=== PATIENT | female | born 1965 | race Caucasian/White ===

== ENCOUNTER → 2018-09-18 10:47 | Outpatient (CLI) | payer OTHER, SELFPAY ==
--- NOTE | 2018-09-17 | EMB_PTH ---
PATIENT: JOE NATH LOC: [facility] U#:[id number] AGE/SX: 60/F ROOM: RE09/18/[address]: Dr. Danilo Boss MD : 1965 BED: DIS: SPEC #: [id number] RECD: 09/18/18 10:34 STATUS: TAI RESotero #: [id number] LENY: 09/17/18 00:[address]: Danilo Boss DEPT: SURGICAL PATHOLOGY RECD BY: Sebastián Lares Tissues: Endometrium, NOS Procedures: Surgery Specimen Level IV HEADER OPERATION: Endometrial biopsy PRE-OP DIAGNOSIS: N93.9 TISSUE SUBMITTED: Endometrial biopsy MICROSCOPIC DIAGNOSIS Endometrium, biopsy: Secretory endometrium. AM:sonia 09/19/18 MICROSCOPIC DESCRIPTION Slides are reviewed. GROSS DESCRIPTION Received in fixative is one container labeled with the patient's name and designated EM biopsy. The specimen consists of multiple fragments of bynum hemorrhagic soft tissue that in aggregate measure 3 x 2.5 x 0.2 cm. The entire specimen is submitted in one cassette. / SJ:sonia 09/18/18 TC:5 CPT: 84538
[2018-09-23 12:11] LABS: HPV Reflexed? NOT INDICATED
== END ==
PROVIDERS: Referring Provider Obstetrics & Gynecology; Visit Provider Obstetrics & Gynecology
DX: N85.8 Other specified noninflammatory disorders of uterus (principal); Z12.4 Encounter for screening for malignant neoplasm of cervix; N93.9 Abnormal uterine and vaginal bleeding, unspecified
CPT/HCPCS: 87624; 88175; 88305; G0145

== ENCOUNTER → 2020-09-28 | Outpatient (CLI) | payer OTHER, SELFPAY ==
--- NOTE | 2020-09-29 | EMB_PTH ---
PATIENT: JOE NATH [facility]#:[id number] AGE/SX: 55/F ROOM: RE09/28/[address]: Dr. Danilo Boss MD : 1965 BED: DIS: 09/28/2020 SPEC #: [id number] RECD: 09/29/20 10:34 STATUS: TAI MAYERS #: [id number] LENY: 09/29/20 00:[address]: Danilo Boss DEPT: SURGICAL PATHOLOGY RECD BY: Sebastián Lares Tissues: A - Endometrium, NOS B - Uterine cervix, NOS Procedures: Surgery Specimen Level IV HEADER OPERATION: Endometrial biopsy PRE-OP DIAGNOSIS: PMB TISSUE SUBMITTED: A - Endometrial biopsy, B ? Cervical polyp MICROSCOPIC DIAGNOSIS A. Endometrial biopsy: Proliferative endometrium. A fragment of benign endocervical mucosa, blood and mucous. B. Cervical polyp, biopsy: Benign ectocervical polyp. SJ:sonia 09/30/2020 MICROSCOPIC DESCRIPTION Slides are reviewed. GROSS DESCRIPTION A - Received in fixative is one container labeled with the patient's name and designated EMB. The specimen consists of multiple irregular fragments of bynum soft tissue mixed with bynum mucoid tissue that in aggregate measure 2 x 1 x 0.3 cm. The entire specimen is submitted in one cassette. B - Received in fixative is one container labeled with the patient's name and designated cervical polyp. The specimen consists of a piece of pink congested polyp measuring 1 x 0.7 x 0.5 cm. The specimen is bisected and submitted entirely in one cassette. / SJ:rg 09/29/20 TC:4 CPT: 30322 x2
[2020-10-01 16:45] LABS: HPV Reflexed? NOT INDICATED
== END | disposition home or self-care (01) ==
PROVIDERS: Visit Provider Obstetrics & Gynecology
DX: N95.0 Postmenopausal bleeding (principal); Z12.4 Encounter for screening for malignant neoplasm of cervix
CPT/HCPCS: 88175; 88305; G0145

== ENCOUNTER → 2020-11-02 08:03 | Outpatient (CLI) | payer OTHER, SELFPAY ==
--- NOTE | 2020-11-02 08:06 | CT_ITS ---
STUDY: CT LEFTLOWER EXTREMITY WITHOUT CONTRAST REASON FOR EXAM: Female, 55 years old. OSTEOARTHRITIS RADIATION DOSAGE (If Supplied By Facility): CTDIvol = ( 18.87 ) mGy, DLP = ( 972.52 ) mGycm TECHNIQUE: Thin section transaxial imaging of the ankle was obtained, with sagittal and coronal reconstructed images. Individualized dose optimization techniques were used for this CT. COMPARISON: None. Hip findings: Normal hip joint without articular joint space narrowing. Normal acetabulum. Normal labrum. Normal femoral head. Normal femoral neck and intratrochanteric region. There is no demonstrated fracture. Normal superior and inferior pubic rami. Normal pubic symphysis. Normal ischial tuberosity. Normal visualized iliac wing, sacroiliac joint, and sacral ala. Normal visualized soft tissue structures of the pelvis. Knee findings: Moderate to significant narrowing is seen in the medial compartment of the knee joint. Mild peripheral cortical spurring is present in the medial compartment. A moderate size joint effusion is present. Normal lateral femoral condyle and lateral tibial plateau. There is preservation of the articular joint space of the lateral knee compartment. Mild narrowing of the patellofemoral compartment noted. No visualized fractures. Normal proximal tibiofibular articulation. The quadriceps tendon is grossly normal. The patellar tendon is grossly normal. Normal Hoffa''s fat pad. The soft tissues are unremarkable. Ankle findings: Normal visualized distal tibia and fibula. Normal tibiotalar articulation and talar dome. Normal talus, calcaneus, navicular and cuboid tarsal bones. Normal subtalar, talonavicular and calcaneocuboid articulations. Normal navicular-cuneiform, cuneiform tarsal bones and intercuneiform articulations. Normal tarsometatarsal articulations and visualized metatarsi. The soft tissue structures are grossly normal. CT/Extremity Lower without Contra IMPRESSION: 1. Moderate to significant narrowing is seen in the medial compartment of the knee joint. Mild peripheral cortical spurring is present in the medial compartment. A moderate size joint effusion is present. Electronically Signed: Raffy Colin MD at 23:55 EDT , Service support ,
--- NOTE | 2020-11-02 11:01 | EKG12_ITS ---
Test Reason : PRE-OP Blood Pressure : / mmHG Vent. Rate : 070 BPM Atrial Rate : 070 BPM P-R Int : 144 ms QRS Dur : 078 ms QT Int : 416 ms P-R-T Axes : 018 -01 016 degrees QTc Int : 449 ms Normal sinus rhythm Normal ECG Confirmed by PRIMITIVO SALES, CHRIS ([id number]), graphic editor SKYLA RHODES ([id number]) on 11/03/2020 1:03:34 PM Referred By: Ganga Small Confirmed By:CHRIS LANGFORD MD
== END ==
PROVIDERS: PCP Family Medicine; Referring Provider Orthopaedic Surgery; Visit Provider Orthopaedic Surgery
DX: Z01.810 Encounter for preprocedural cardiovascular examination (principal); M17.12 Unilateral primary osteoarthritis, left knee; Z01.818 Encounter for other preprocedural examination
CPT/HCPCS: 73700; 93005

== ENCOUNTER 2020-11-08 06:01 | Day surgery (SDC) | payer OTHER, SELFPAY ==
[2020-10-27 17:24] LABS: Hematocrit 41.4 % (37-47); Hemoglobin 12.9 g/dL (12.0-15.0); Mean Corp Hgb Conc 31.2 g/dL (32-36); Mean Corpuscular Hgb 28.6 pg (27.0-32.0); Mean Corpuscular Volume 91.8 fL (81-99); Mean Platelet Vol. 10.4 fl (6.2-12.0); Platelet Count 311 K/mm3 (150-450); RBC Distribution Width CV 14.3 % (11.6-14.6); RBC Distribution Width SD 48.3 fl (35.1-43.9); Red Blood Count 4.51 M/mm3 (4.2-5.4); White Blood Count 9.6 K/mm3 (4.4-11.0)
[2020-10-27 17:32] LABS: Partial Thromboplast Time 26.4 Seconds (24.1-36.2); Prothrombin Time (Protime)PT. 12.5 SECONDS (11.7-14.9)
[2020-10-27 18:46] LABS: ALB/GLOB Ratio 1.1 RATIO (0.9-2.4); AST(SGOT) 11 U/L (15-37); Alanine Aminotransfer ALT/SGPT 26 U/L (13-56); Albumin, Serum 3.6 g/dL (3.2-5.0); Alkaline Phosphatase 97 U/L (45-117); Anion Gap 5 (5-15); BUN 27 mg/dL (7-18); BUN/Creat Ratio 26.2 RATIO (10-20); Calcium,Total 8.4 mg/dL (8.5-10.1); Chloride 106 mmol/L (98-107); Creatinine, Serum 1.03 mg/dL (0.55-1.02); EST Glomerular Filtration Rate 59 mL/min (>60); Est Glom Filt Rate - Afr Amer 71 mL/min (>60); Follicle Stimulating Hormone 55.9 mIU/mL; Globulin 3.4 g/dL (2.2-4.2); Glucose 107 mg/dL (74-106); Potassium 3.9 mmol/L (3.5-5.1); Sodium Level 140 mmol/L (136-145)
[2020-11-02 14:09] LABS: Hemoglobin A1c 6.4 % (3.8-5.6)
--- NOTE | 2020-11-07 13:10 | HP.PCM_ITS ---
History and Physical Date of Admission: 11/08/20 Surgical History and Physical Ivania Mcbride, a 55 year old female 2 0 0 0 2, presents for D and C and hysteroscopy on November 08, 2020 at 7:30. -- [employer] Bleeding, EM Polyp -- PMB which began 9 months. Ivania claims it started suddenly and has been present November/2019, , . It occurs intermittantly. It is located in the vagina.; It is located in the lower abdomen. Ivania characterizes it to be non-radiating. Ivania characterizes the quality discharge from pink to red to brown. Severity is moderate and very concerned; Additional comments are: EMBx benign; u/s shows 1 cm EM polyp. MEDICATIONS HISTORY: Patient is also takin. fluoxetine 20 mg capsule, 1 tab 3 days/wk 2. hydrochlorothiazide 12.5 mg capsule, 1 qd 3. lisinopril 40 mg tablet, 1 qd 4. levothyroxine 100 mcg tablet, One pill by mouth once a day 5. potassium chloride ER 10 mEq tablet,extended release, One pill by mouth once a day ALLERGIES: No Known Drug Allergies Infections - Chicken pox Illnesses - HTN,Hypothyroidism,depression Accidents - None Hospitalizations - Childbirth and see surgery Review of Systems: GENERAL - Denies fever, or chills SKIN - Denies skin changes EYES - Denies visual changes EARS - Denies difficulty hearing NOSE - Denies nasal congestion or bleeding MOUTH - Denies sore throat or difficulty swallowing NECK - Denies pain or swelling RESPIRATORY - Denies shortness of breath or wheezing CARDIOVASCULAR - Denies palpitations or chest pain GASTROINTESTINAL - Denies nausea, vomiting, diarrhea, constipation GENITOURINARY - Denies dysuria, frequency of urination, incontinence of urine MUSCULOSKELETAL - Denies joint or muscle pain NEUROLOGICAL - Denies localized numbness or weakness PSYCHIATRIC - Denies depression or anxiety ENDOCRINE - Denies heat or cold intolerance, weight loss or gain HEMATO-IMMUNOLOGIC - Denies excesive bleeding with cuts SOCIAL HISTORY: Alcohol Use - denies drinking Smoking - denies smoking Diet - no special diet Lifestyle - moderate stress lifestyle and Exercise - minimal Seat Belt Use - always Employer - [employer] 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 06/07/1988 2. 06/24/1991 , BTO 3. deviated septum 2008 PHYSICAL EXAM BP- 144/86 Sitting, Right arm, large cuff Weight- 218.40959 lbs Height- 63 inch BMI:38.70 CONSTITUTIONAL - NAD, well nourished, and well developed SKIN - No rash, lesions, or ulcers HEENT - Normocephalic, PERRLA, EOMI NECK - No nodes, no nuchal rigidity and thyroid normal size and texture LYMPH NODES - Palpation of lymph nodes in neck and groins within normal limits LUNGS - CTA x2 without wheezes, crackles or rales CARDIAC - Regular rate and rhythm without rubs, murmurs, or gallops ABDOMEN - Without hepatosplenomegaly, distention, masses, rebound, or guarding; normal bowel sounds; no hernias EXTREMITIES - No edema or calf tenderness NEUROLOGICAL - Cranial nerves II-XII grossly intact PSYCHIATRIC - A and O to time, place, person, mood and affect DETAILED PELVIC EXAM External Genitial Vagina - non-tender without lesions Urethra/Urethral Meatus - non-tender Bladder - non-tender Vagina - vaginal hernández are pink and moist without loss of rugae and no evidence of atropy Cervix - without cervical motion tenderness and has normal size and features without evident lesions Uterus - multiparous size 6 cm & wt 75-125 g Adnexa - clear without massess or tenderness ASSESSMENT/PLAN: 1. Postmenopausal Bleeding Likely EM polyp; EMBx ok. Discussed options and will proceed with a D and C and H/S. Discussed RBAs and all questions answered.
[2020-11-08] VITALS (7 sets, daily range): BP systolic 120–145; BP diastolic 71–90; PULSE 70–82; RESP 16–18; TEMP 36.1–36.9; O2SAT 95–99; BMI 40.0
[2020-11-08 06:37] LABS: Internal QC Validated? YES +Cl - CLEAR BKGD; Pregnancy, Urine Negative Negative
[2020-11-08] MEDS: Lactated Ringers 1,000 ML 100 ML IV (06:45)
--- NOTE | 2020-11-08 07:26 | PCM.OPRPT ---
Problems Associated Problem List Diagnoses (1) Abnormal vaginal bleeding in postmenopausal patient: Report of Operation Date of Procedure: 11/08/20 Pre-Operative Diagnosis: Postmenopausal Bleeding, Endometrial Polyp Post-Operative Diagnosis: Postmenopausal Bleeding, Endometrial Polyp Surgery/Procedure Performed:: Diagnostic Hysteroscopy, Dilation and Curettage Description of Surgical Findings:: 8 cm endometrial cavity without fibroids present. 1 cm endometrial polyp visualized and removed. Cervix high in vagina which would make robotic assisted vaginal hysterectomy the approach of choice should hysterectomy be needed in the future. Surgeon: Danilo Boss Type of Anesthesia: MAC Anesthesiologist: Tino Ashby Estimated Blood Loss (mL): Minimal Fluids Replaced: Crystalloid Description of Procedure: Surgeon: Danilo Boss MD, FACOG Indications: This is a 55 year old patient who has the above diagnosis. The patient has been counseled regarding the risk and indications of this procedure including the possibility of bleeding, infection, and injury to surrounding structures such as bowel bladder. All questions were answered and we consider the patient well-informed. Procedure: The patient was taken to the operating room where after induction of general anesthesia, she was placed in the dorsolithotomy position and prepped and draped in the usual sterile fashion. Anterior cervix was grasped with the tenaculum and dilated to about 4-5 mm. A 3 mm hysteroscope was placed in the uterus of the above findings were noted. Cervix was dilated to about 7-8 mm and uterus was gently curetted removing all contents. Hysteroscope was reinserted and all material was noted to be removed. In the course of the procedure approximately 100 cc of saline distending media was used and virtually all of this was recovered. Patient tolerated procedure well was taken to recovery room in satisfactory condition sponge instrument and needle counts were all reportedly correct. Estimated blood loss for the case was minimal. Specimens to pathology was endometrial and endocervical curettings Grafts/Implants Used: None Complications None Admit VTE Documentation VTE Present on Admission: Yes VTE Mechan Device Prophylaxis: SCD's
--- NOTE | 2020-11-08 07:30 | EMB_PTH ---
PATIENT: JOE NATH LOC: [facility] [place] U#:[id number] AGE/SX: 55/F ROOM: RE11/08/[address]: Dr. Danilo Boss MD : 1965 BED: DIS: 11/08/2020 SPEC #: [id number] RECD: 11/08/20 10:30 STATUS: TAI RESotero #: [id number] LENY: 11/08/20 07:[address]: Danilo Boss DEPT: SURGICAL PATHOLOGY RECD BY: Rosaura Hughes ENTERED: 11/08/20 13:48 SP TYPE: ENDOM BX/C ASHLEY DR: Dr. Huseyin Simpson MD Tissues: B - Endometrium, NOS A - Endocervical Procedures: Surgery Specimen Level IV HEADER OPERATION: Hysteroscopy, dilation and curettage PRE-OP DIAGNOSIS: Postmenopausal bleeding TISSUE SUBMITTED: A ? Endocervical curettings, B ? Endometrial curettings MICROSCOPIC DIAGNOSIS A. Endocervical curettings: Fragments of benign ecto- and endocervical epithelium, blood and mucous, no pathologic diagnosis. B. Endometrial curettings: Proliferative endometrium. Fragments of myometrium. See comment. TATIANA:sonia 11/09/2020 COMMENT Clinical correlation and appropriate follow up are necessary. Please make reference to previous specimen ([id number]) endometrial biopsy with diagnosis of ?proliferative endometrium? and cervical polyp, biopsy with diagnosis of ?benign ectocervical polyp.? MICROSCOPIC DESCRIPTION Slides are reviewed. GROSS DESCRIPTION A - Received in fixative is one container labeled with the patient's name and designated endocervical curettings. The specimen consists of multiple fragments of bynum hemorrhagic mucoid tissue that in aggregate measure 1.5 x 0.6 x 0.3 cm. The specimen is totally submitted in one cassette. B - Received in fixative is one container labeled with the patient's name and designated endometrial curettings. The specimen consists of multiple fragments of hemorrhagic soft tissue that in aggregate measure 3 x 2.5 x 0.3 cm. The specimen is totally submitted in one cassette. / SJ:sonia 11/08/20 TC:4 CPT: 68370 x2
--- NOTE | 2020-11-08 07:31 | PCM.DC ---
Discharge Instructions Diet Discharge Diet: No restrictions Activity Discharge Activity: May Shower and May Take a Tub Bath May resume sexual activity in: 1-2 weeks Lifting Restrictions: None Additional Activity Instructions:: Nothing in the vagina for 1 to 2 weeks. Use ibuprofen or Tylenol as needed during the next few days for cramping. Dressing / Incision Call your doctor if you observe: Fever of 101 or Higher, Inability to urinate, Inability to have a bowel movement and Using more than 1 pad per hour Follow Up Care Please Follow Up With: Danilo Boss MD When: 2 to 3 weeks Test Results: Test results from this visit will be discussed in further detail at your follow-up appointment, if applicable. Discharge Plan Admission Primary Reason for Your Visit: D and C Attending Provider: Danilo Boss Primary Care Provider: Huseyin Simpson Discharge Orders/Prescriptions Prescriptions: Continued amlodipine 5 mg tablet 5 mg PO DAILY RF: 0 levothyroxine 100 mcg tablet 100 mcg PO DAILY RF: 0 lisinopril 40 mg tablet 40 mg PO DAILY RF: 0 fluoxetine [Prozac] 20 mg capsule 20 mg PO DAILY RF: 0 omeprazole magnesium [Prilosec OTC] 20 mg Tablet,Delayed Release (Dr/Ec) 20 mg PO DAILY RF: 0 potassium chloride 10 mEq tablet,ER particles/crystals 10 meq PO DAILY RF: 0 Referrals / Follow Up: Huseyin Simpson MD [Primary Care Provider] - Disposition Disposition (needs filled in before D/C Order can be placed): Home, self care
== END 2020-11-08 09:29 | disposition home or self-care (01) ==
LOC: SDC 06:02 → AC 06:04
PROVIDERS: Anesthesiology; PCP Family Medicine; Referring Provider Obstetrics & Gynecology; Visit Provider Obstetrics & Gynecology
PROC: 0UDB8ZZ Extraction of Endometrium, Via Natural or Artificial Opening Endoscopic (ICD-10-PCS; CPT 58558; principal; 2020-11-08 07:20)
DX: N84.0 Polyp of corpus uteri (principal); N95.0 Postmenopausal bleeding; I10 Essential (primary) hypertension; E03.9 Hypothyroidism, unspecified; F32.9 Major depressive disorder, single episode, unspecified; K21.9 Gastro-esophageal reflux disease without esophagitis; G47.30 Sleep apnea, unspecified; Z79.899 Other long term (current) drug therapy
CPT/HCPCS: 00952; 58558; 36415; 80053; 81025; 83001; 83036; 85027; 85610; 85730; 86850; 86900; 86901; 88305; J7120; J2405

== ENCOUNTER 2020-11-26 05:33 | Day surgery (SDC) | payer OTHER, SELFPAY ==
[2020-11-08 06:35] VITALS: BMI 40.0
[2020-11-23 11:52] LABS: Magnesium 2.2 mg/dL (1.6-2.6); Thyroid Stim Hormone (TSH) 1.36 uIU/mL (0.358-3.74)
[2020-11-26] VITALS (10 sets, daily range): BP systolic 105–141; BP diastolic 64–99; PULSE 68–105; RESP 16–18; TEMP 36.1–36.6; O2SAT 16–100; BMI 40.8
[2020-11-26 05:56] LABS: Internal QC Validated? YES +Cl - CLEAR BKGD; Pregnancy, Urine Negative Negative
[2020-11-26] MEDS: Lactated Ringers 1,000 ML 100 ML IV ×2 (06:00→11:04)
[2020-11-26] MEDS: Acetaminophen 500 MG Tablet 1000 MG PO ×2 (06:18→14:18)
[2020-11-26] MEDS: Scopolamine 1mg/72hr Patch 1 PATCH TD (06:18)
[2020-11-26] MEDS: Gabapentin 600 MG Tablet PO (06:18)
[2020-11-26 06:46] LABS: Bedside Glucose 90 mg/dL (70-110)
[2020-11-26] MEDS: Cefazolin 2 GM in 0.9% Normal Saline 100 ML IV (07:23)
--- NOTE | 2020-11-26 07:30 | KNEE_PTH ---
PATIENT: JOE NATH LOC: [facility] [place] U#:[id number] AGE/SX: 55/F ROOM: RE11/26/[address]: Dr. Ganga Small DO : 1965 BED: DIS: 11/26/2020 SPEC #: [id number] RECD: 11/26/20 10:35 STATUS: TAI RESotero #: [id number] LENY: 11/26/20 07:[address]: Ganga Small DEPT: SURGICAL PATHOLOGY RECD BY: Rosaura Hughes ENTERED: 11/26/20 11:01 SP TYPE: TOTAL KNEE OTHR DR: MD Dr. Huseyin Vargas MD Tissues: Knee, NOS Procedures: Decalcification bone/plaque Surgery Specimen Level IV HEADER OPERATION: ERAS, total knee replacement robotic arm assist PRE-OP DIAGNOSIS: Osteoarthritis TISSUE SUBMITTED: Left knee bone MICROSCOPIC DIAGNOSIS Bone and tissue of left knee, total knee resection: Severe degenerative joint disease. AM:sonia 12/01/2020 MICROSCOPIC DESCRIPTION Slides are reviewed. GROSS DESCRIPTION Received is one container designated left knee bone. The specimen consists of multiple fragments of bynum-yellow bone measuring in aggregate 10 x 9 x 2.5 cm. Also in the specimen container is soft tissue predominantly consisting of cartilaginous tissue measuring in aggregate 5.5 x 3 x 0.6 cm. A number of bony fragments contain articular surfaces consistent with tibial plateau and femoral condyle and displaying prominent osteophyte formation, eburnation, and bone erosion. Chrome Worker sections are submitted in two cassettes as follows: 1 - cartilaginous tissue, 2 - bone after decalcification. / SJ:sonia 11/26/20 TC:5 [facility]: [id number], [id number]
--- NOTE | 2020-11-26 09:03 | PCM.OPRPT ---
Report of Operation Date of Procedure: 11/26/20 Pre-Operative Diagnosis: OA left knee Post-Operative Diagnosis: same Surgery/Procedure Performed:: Left TKR Description of Surgical Findings:: Report of Operation Date of Procedure: Preoperative Diagnosis: [left ] knee primary osteoarthritis Postoperative Diagnosis: [ left ] knee primary osteoarthritis Operation: Robotic Assisted Knee Total Arthroplasty, [ ] knee Surgeon: Dr Ganga Small DO Lasting Floorworker: Tino Moreira PA-C Anesthesia: spinal Anesthesiologist: Ziggy Boss M.D. Findings: Stable knee with good patella tracking Specimen(s): Bony cuts Complications: No intraoperative complications Estimated Blood Loss: 20 cc IV Fluids: 1000 cc crystalloid Implants Used: 1. [place] Triathlon size 2 CR press-fit femur 2. [place] Triathlon size 2 tibia 3. 9 mm CS polyethylene 4. 29 mm patella Brief History Operative Indications: [ 55 y/o female ] with history of [left ] knee osteoarthrosis with radiographic findings with loss of joint space, osteophyte formation and subchondral sclerosis. Failed conservative measures as mentioned in the H&P. Discussion of total knee arthroplasty as well as risk and benefits were discussed with the patient including but not limited to blood loss, DVTs, PEs, neurovascular damage, general risk of anesthesia including loss of life, and stiffness or instability were also discussed with the patient. Patient demonstrated understanding and was able to sign informed consent. Procedure: On the date of procedure, patient's [left ] lower extremity was marked in the preoperative area. The patient was then taken back to the operating room where that patient was placed on the table in the supine position. All bony prominences were identified and well-padded. Anesthesia assumed control of the C-spine and airway throughout the remainder of the procedure. A tourniquet was placed on the [left ] upper thigh and the leg was prepped in a sterile fashion. The surgeon then scrubbed at this time. Upon reentering the room, the [ left ] lower extremity was draped in a standard orthopedic fashion. A timeout was then called and everyone agreed upon the side, the site, the procedure to be performed, patient's identity and antibiotics given. Esmarch bandage was used to exsanguinate the extremity and the tourniquet was placed up to 300 mmHg with the knee in flexion. A midline skin incision was made and a sharp dissection was taken down through skin, subcutaneous tissue and fat. The standard medial parapatellar incision was made and the patella was subluxed laterally. An appropriate deep MCL release was done and the fat pad was resected. Our attention was then directed to the patella. The patella was everted and a flat resection was made. The knee was then flexed up and 2 femoral pins were placed inside the incision and 2 tibial pins were placed outside the incision in the medial tibia bicortically. Once this was completed, the 2 checkpoints in the femur and tibia were placed. Knee was then flexed up and the bony landmarks were registered. Once the was completed, the knee taken through range of motion and manually stressed allowing us to plan for an appropriate tibial cut. The robotic arm was brought into the field sterilely and checkpoint and saw were registered. Based on the patient's deformity, the tibial cut was made in [2 degrees varus ]. At this time, the tensioner was then placed in the joint and ligament tension was checked at 90 degrees and full extension. Based on the patient's ligamentous tension, appropriate adjustments were made to the operative plan and ligament releases were done. Once we were happy with our operative plan with balanced flexion and extension gaps, our attention was directed to the femur. The robot was brought into the field sterilely and registered. Posterior condylar cuts, anterior chamfer cuts and anterior cuts were appropriately made for a [size 2 ] femur. When these were completed, the saws were switched out in the distal femoral and posterior chamfer cuts were made. Protecting the soft tissue throughout this time. A [size 2 ] base plate was selected. The knee was flexed to 90 degrees and soft tissues and posterior osteophytes were removed from the joint. 40 cc of the periarticular injection was injected into the posterior medial corner of the joint. The appropriate trials were then placed on the femur and tibia. A trial polyethylene was trialed to ensure proper balancing and stability of the knee. The appropriate tibial internal rotation was then marked with a bovie. Our attention was then directed to the patella. The lug holes were drilled and the patella trial was placed. Patellar tracking was checked and deemed appropriate. Once we were happy, lug holes were drilled for the femur and trial components were removed. The tibia was subluxed and pinned into place and the keel was punched and drilled appropriately. Final components were verified and opened. The wound was copiously irrigated with normal saline. The components were impacted into place with the tibia, femur and finally the patella. The trial poly component was placed and the knee was placed in full extension. The tracking, alignment and balance were verified and a [ ] polyethylene component was placed. Once the final components were placed an Irrisept lavage was performed and the wound was copiously irrigated with normal saline solution and the periarticular injection was given. the wound was closed in a layer-navarro fashion using #1 vicryl interrupted sutures for the arthrotomy, 2-0 interrupted vicryl suture for the subcuticular layer and amanda for final skin closure. A sterile compressive dressing was then placed. The patient was then awakened from anesthesia, [place] the [place] and transferred to the PACU for recovery. My physician assistant administrator was a vital part of this case. He was important in appropriate retraction during the case, and protection of soft tissues during bony cuts. His intimate knowledge of the case and my steps aided in safe and expedient completion of the procedure as well as appropriate position of the leg during the case. He was also vital in assisting with closure under my direct supervision. Due to the complexity of this case, robotic arm was used to assist in the surgery to improve accuracy and clinical outcomes. Post-op Plan: DVT ppx; ASA 81 mg BID, thigh high compression stockings Follow up: in office in 2 weeks for wound check PT: to start POD #0 at hospital, outpatient PT should be arranged. Preoperative antibiotic: Ancef 2 grams IV Ganga Small DO Surgeon: Ganga Small medical billing assistant: Tino Moreira Type of Anesthesia: Spinal Anesthesiologist: Ziggy oBss Specimen's removed: bone Estimated Blood Loss (mL): 20 cc Fluids Replaced: 1000 cc crystalloid Admit VTE Documentation VTE Present on Admission: No VTE Mechan Device Prophylaxis: SCD's and Thigh High LADONNA Hose VTE Pharm Prophylaxis ordered?: Yes
[2020-11-26] MEDS: Lactated Ringers 1,000 ML 999 ML IV (09:31)
[2020-11-26] MEDS: oxyCODONE 5 MG Tablet PO ×2 (11:01→11:38)
== END 2020-11-26 14:58 | disposition home or self-care (01) ==
LOC: SDC 05:34 → AC 05:34
PROVIDERS: Anesthesiology; PCP Family Medicine; Referring Provider Orthopaedic Surgery; Visit Provider Orthopaedic Surgery
PROC: 0SRD0JZ Replacement of Left Knee Joint with Synthetic Substitute, Open Approach (ICD-10-PCS; CPT 27447; principal; 2020-11-26 07:00)
DX: M17.12 Unilateral primary osteoarthritis, left knee (principal); I10 Essential (primary) hypertension; G47.30 Sleep apnea, unspecified; E07.9 Disorder of thyroid, unspecified; F32.9 Major depressive disorder, single episode, unspecified; K21.9 Gastro-esophageal reflux disease without esophagitis; Z79.899 Other long term (current) drug therapy
CPT/HCPCS: 01402; 27447; S2900; 36415; 81025; 82962; 83735; 84443; 87081; 88305; 88311; 97162; C1776; J7120; J2405

== ENCOUNTER 2021-04-25 05:57 | Day surgery (SDC) | payer OTHER, SELFPAY ==
[2021-04-21 16:34] LABS: Hematocrit 37.9 % (37-47); Hemoglobin 11.8 g/dL (12.0-15.0); Mean Corp Hgb Conc 31.1 g/dL (32-36); Mean Corpuscular Hgb 27.6 pg (27.0-32.0); Mean Corpuscular Volume 88.8 fL (81-99); Mean Platelet Vol. 10.8 fl (6.2-12.0); Platelet Count 329 K/mm3 (150-450); RBC Distribution Width CV 13.7 % (11.6-14.6); RBC Distribution Width SD 44.3 fl (35.1-43.9); Red Blood Count 4.27 M/mm3 (4.2-5.4)
[2021-04-21 17:05] LABS: Anion Gap 6 (5-15); BUN 26 mg/dL (7-18); BUN/Creat Ratio 26.7 RATIO (10-20); Chloride 105 mmol/L (98-107); Creatinine, Serum 0.97 mg/dL (0.55-1.02); EST Glomerular Filtration Rate 63 mL/min (>60); Est Glom Filt Rate - Afr Amer 76 mL/min (>60); Glucose 107 mg/dL (74-106); Potassium 3.7 mmol/L (3.5-5.1); Sodium Level 138 mmol/L (136-145)
[2021-04-21 17:13] LABS: Hemoglobin A1c 6.5 % (3.8-5.6)
[2021-04-25] VITALS (7 sets, daily range): BP systolic 119–153; BP diastolic 67–89; PULSE 78–94; RESP 14–16; TEMP 36–36.7; O2SAT 94–100; BMI 39.9
[2021-04-25] MEDS: Lactated Ringers 1,000 ML 15 ML IV (06:32)
[2021-04-25] MEDS: Cefazolin 2 GM in 0.9% Normal Saline 100 ML IV (07:28)
[2021-04-25] MEDS: Lidocaine 1% /Epi 1:100 (20ml) 20 ML Vial (08:00)
[2021-04-25] MEDS: Epinephrine (1 mg/ml) 1 MG/ML VIAL (08:00)
--- NOTE | 2021-04-25 09:32 | PCM.OPRPT ---
Report of Operation Date of Procedure: 04/25/21 Pre-Operative Diagnosis: Subacromial impingement syndrome, AC joint arthrosis, rotator cuff tear right shoulder Post-Operative Diagnosis: same Surgery/Procedure Performed:: Dana DA SILVA procedure, rotator cuff repair right shoulder Description of Surgical Findings:: Report of Operation Date of Procedure: 04/25/21 Preoperative Diagnosis: Right shoulder, SAIS, AC arthrosis and RCT Postoperative Diagnosis: Right Shoulder, same Operation: Diagnostic and operative arthroscopy of the right shoulder with arthroscopic Dana DA SILVA procedure and rotator cuff repair Surgeon: Dr Ganga Small DO Fishing Captain: Tino Moreira PA-C Anesthesia: General/regional Anesthesiologist: Ziggy Boss M.D. Description of Procedure: With appropriate informed consent, the patient was taken to the operative suite. After induction of general and regional anesthesia and administration of preoperative antibiotics, the patient was placed in a beach-chair position with all bony prominences well padded. SCD's were on the legs. The right arm and shoulder were prepared and draped sterilely. Thereafter, the standard arthroscopy portals were established. The glenohumeral joint was in good condition without evidence of damage or arthrosis. An anterior portal was established. There was no labral instability. There was a tear of the supraspinatus into the leading edge of the infraspinatus. The undersurface of this was debrided with a shaver. The arthroscopy instruments were then removed from the joint and placed into the subacromial space. A lateral portal was established. There was severe hypertrophic subacromial bursitis. A complete subacromial bursectomy was carried out. This revealed a large anterior inferior subacromial spur and significant AC joint arthrosis. A bur was utilized to perform an anterior inferior acromionectomy to flatten the undersurface of the acromion and decompress the subacromial space. The bur was then utilized to resect the distal 9mm of the clavicle in the manner of Dana. Attention was now brought to the rotator cuff. The rotator cuff footprint was slightly decorticated with a bur. Thereafter, [ 4 ] Arthrex FiberTape suture was placed in a horizontal mattress fashion and then augmented with a FiberLoop to augment the repair. The sutures were brought out laterally then over [ 2 ] SwiveLock anchor, very nicely bringing the rotator cuff back down to the footprint and compressing it. The free ends of the sutures were cut and I was able to take the shoulder through a full range of motion with no evidence of undue impingement or undue tension upon the repair. Arthroscopy instruments and fluids were removed. The portals were closed with interrupted sutures of 4-0 nylon followed by application of a sterile well-padded dressing and UltraSling. My automobile mechanic assistant, Mr Moreira, provided a vital role in the performance of this procedure beginning with positioning of the patient, maneuvering the arm, holding the arthroscope during various portions of the diagnostic and operative arthroscopy. Then, under my direct supervision, he closed the wounds and applied the sterile post-operative dressing. The patient was extubated and transferred to the PACU in stable and satisfactory condition. Ganga Small DO Surgeon: Ganga Small labeling specialist: Tino Moreira Type of Anesthesia: General/Regional Anesthesiologist: Ziggy Boss Admdeepak VTE Documentation VTE Present on Admission: No VTE Mechan Device Prophylaxis: SCD's and Thigh High LADONNA Hose VTE Pharm Prophylaxis ordered?: No Reason prophylaxis not ordered:: Treatment Not Indicated
[2021-04-25] MEDS: HYDROcodone Bitartrate/Apap 5/325 Tablet PO (10:23)
--- NOTE | 2021-04-25 12:56 | SUR.PHASEII ---
This nurse educated patient and on how to dress with the sling. This nurse helped patient dress with a button down. Patient tolerated well.
== END 2021-04-25 13:13 ==
LOC: SDC 05:57 → AC 05:58
PROVIDERS: Referring Provider Orthopaedic Surgery; Visit Provider Orthopaedic Surgery
PROC: (CPT 29827; principal; 2021-04-25 07:10)
DX: M75.101 Unspecified rotator cuff tear or rupture of right shoulder, not specified as traumatic (principal); M75.41 Impingement syndrome of right shoulder; M19.011 Primary osteoarthritis, right shoulder; M75.51 Bursitis of right shoulder; I10 Essential (primary) hypertension; F32.A Depression, unspecified; G47.30 Sleep apnea, unspecified; K21.9 Gastro-esophageal reflux disease without esophagitis; E07.9 Disorder of thyroid, unspecified; Z78.0 Asymptomatic menopausal state; Z79.899 Other long term (current) drug therapy
CPT/HCPCS: 01630; 29824; 29826; 29827; 36415; 80048; 83036; 85027; J7120; J2405

== ENCOUNTER 2021-11-14 08:12 | Day surgery (SDC) | payer OTHER, SELFPAY ==
--- NOTE | 2021-11-04 09:15 | EKG12_ITS ---
Test Reason : PREOP Blood Pressure : / mmHG Vent. Rate : 067 BPM Atrial Rate : 067 BPM P-R Int : 138 ms QRS Dur : 086 ms QT Int : 428 ms P-R-T Axes : 015 007 019 degrees QTc Int : 452 ms Normal sinus rhythm Normal ECG Confirmed by JOO SALES, TESSY ([id number]), online content editor SKYLA RHODES ([id number]) on 11/07/2021 1:06:28 PM Referred By: Ganga Small Confirmed By:TESSY GE MD
[2021-11-04 10:34] LABS: Hematocrit 43.1 % (37-47); Hemoglobin 13.4 g/dL (12.0-15.0); Mean Corp Hgb Conc 31.1 g/dL (32-36); Mean Corpuscular Hgb 28.9 pg (27.0-32.0); Mean Corpuscular Volume 92.9 fL (81-99); Mean Platelet Vol. 11.2 fl (6.2-12.0); Platelet Count 279 K/mm3 (150-450); RBC Distribution Width SD 44.2 fl (35.1-43.9); Red Blood Count 4.64 M/mm3 (4.2-5.4)
[2021-11-04 10:52] LABS: Hemoglobin A1c 6.7 % (3.8-5.6)
[2021-11-04 10:55] LABS: Anion Gap 6 (5-15); BUN 18 mg/dL (7-18); BUN/Creat Ratio 19.4 RATIO (10-20); Calcium,Total 8.8 mg/dL (8.5-10.1); Chloride 106 mmol/L (98-107); Creatinine, Serum 0.93 mg/dL (0.55-1.02); EST Glomerular Filtration Rate 66 mL/min (>60); Est Glom Filt Rate - Afr Amer 80 mL/min (>60); Glucose 186 mg/dL (74-106); Potassium 3.5 mmol/L (3.5-5.1); Sodium Level 139 mmol/L (136-145)
[2021-11-14 08:31] VITALS: BP 153/93; PULSE 78; RESP 16; TEMP 36.3; O2SAT 100; BMI 40.7
[2021-11-14] MEDS: Lactated Ringers 1,000 ML 15 ML IV (08:39)
[2021-11-14] MEDS: Cefazolin 2 GM in 0.9% Normal Saline 100 ML IV (09:53)
[2021-11-14] MEDS: Lidocaine 1% /Epi 1:100 (20ml) 20 ML Vial (10:13)
[2021-11-14] MEDS: Epinephrine (1 mg/ml) 1 MG/ML VIAL (10:13)
[2021-11-14 10:37] VITALS: BP 132/71; BP 153/93; PULSE 85; RESP 16; TEMP 36.2; O2SAT 95
[2021-11-14 10:41] LABS: Bedside Glucose 107 mg/dL (74-106)
[2021-11-14 10:45] VITALS: BP 126/80; BP 153/93; PULSE 81; RESP 16; O2SAT 99
[2021-11-14 10:51] LABS: Bedside Glucose 108 mg/dL (74-106)
[2021-11-14 11:00] VITALS: BP 136/82; BP 153/93; PULSE 74; RESP 16; O2SAT 96
[2021-11-14 11:10] VITALS: BP 144/88; BP 153/93; PULSE 78; RESP 16; TEMP 36.5; O2SAT 99
--- NOTE | 2021-11-14 11:20 | PCM.OPRPT ---
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
[2021-11-14 12:09] VITALS: BP 153/93; BP 159/93; PULSE 75; RESP 18; TEMP 36.1; O2SAT 97
== END 2021-11-14 12:11 | disposition home or self-care (01) ==
LOC: SDC 08:12 → AC 08:13
PROVIDERS: Referring Provider Orthopaedic Surgery; Visit Provider Orthopaedic Surgery
PROC: (CPT 29870; principal; 2021-11-14 09:45)
DX: S83.241A Other tear of medial meniscus, current injury, right knee, initial encounter (principal); E11.9 Type 2 diabetes mellitus without complications; M22.41 Chondromalacia patellae, right knee; S83.281A Other tear of lateral meniscus, current injury, right knee, initial encounter; F32.A Depression, unspecified; I10 Essential (primary) hypertension; G47.30 Sleep apnea, unspecified; E07.9 Disorder of thyroid, unspecified; Z78.0 Asymptomatic menopausal state; Z79.899 Other long term (current) drug therapy; K21.9 Gastro-esophageal reflux disease without esophagitis; M17.11 Unilateral primary osteoarthritis, right knee; X58.XXXA Exposure to other specified factors, initial encounter
CPT/HCPCS: 29880; 01400; 36415; 80048; 82962; 83036; 85027; 93005; J7120; J2405